=== PATIENT | female | born 1985 | race Two or more races ===

== ENCOUNTER 2018-11-10 18:33 | Outpatient (CLI) | payer OTHER ==
[2018-11-11] MEDS ORDERED: PRENATAL TABLE1 EAC1 PO (08:10)
== END 2018-11-11 21:36 | disposition home or self-care (01) ==
LOC: OBS/DEL 18:33
DX: O26.843 Uterine size-date discrepancy, third trimester (principal); O26.853 Spotting complicating pregnancy, third trimester; Z34.03 Encounter for supervision of normal first pregnancy, third trimester; O44.13 Complete placenta previa with hemorrhage, third trimester

== ENCOUNTER 2018-12-03 23:25 | Outpatient (CLI) | payer OTHER ==
[~2018-12-03 23:25] MED LIST: PRENATAL TABLE1 EAC1 PO
== END 2018-12-04 19:54 | disposition home or self-care (01) ==
LOC: OBS/DEL 23:25
DX: O26.843 Uterine size-date discrepancy, third trimester (principal); O44.03 Complete placenta previa NOS or without hemorrhage, third trimester; O26.853 Spotting complicating pregnancy, third trimester

== ENCOUNTER 2018-12-19 09:45 | Inpatient (IN) | payer OTHER ==
[~2018-12-19] VITALS: Ht 154.9 cm; Wt 2.7 kg
== END 2019-01-04 10:43 | DRG 788 ==
LOC: O/R 09:45 → OB/GYN 12-27 09:45 → LDR 01-01 09:59 → O/R 01-01 14:35 → OB/GYN 01-01 14:44
PROVIDERS: ADMIT Obstetrics & Gynecology
PROC: 4A1HXCZ Monitoring of Products of Conception, Cardiac Rate, External Approach (ICD-10-PCS; 2019-01-01)
PROC: 10D00Z1 Extraction of Products of Conception, Low, Open Approach (ICD-10-PCS; principal; 2019-01-01 13:00)
DX: O44.03 Complete placenta previa NOS or without hemorrhage, third trimester (principal); Z3A.38 38 weeks gestation of pregnancy; Z37.0 Single live birth; Z22.330 Carrier of Group B streptococcus

== ENCOUNTER → 2018-12-19 | Outpatient (CLI) | payer OTHER | END | disposition home or self-care (01) | LOC: PRENATAL 12-11 08:30 | DX: O26.843 Uterine size-date discrepancy, third trimester (principal); O99.213 Obesity complicating pregnancy, third trimester ==

== ENCOUNTER 2023-11-29 08:30 | Day surgery (SDC) | payer OTHER ==
[2023-11-21 10:23] VITALS: BP 90/70
[2023-11-21 10:32] LABS: URINE APPEARANCE Clear; URINE BILIRRUBIN Negative (NEGATIVE); URINE BLOOD Negative; URINE COLOR Yellow; URINE GLUCOSE Negative (NEGATIVE); URINE KETONE Negative (NEGATIVE); URINE LEUKOCYTE Negative; URINE NITRATE Negative; URINE PROTEIN Negative (NEGATIVE); URINE UROBILINOGEN 0.2 E.U./dl
[2023-11-21 10:38] LABS: URINE BACTERIA 837.7 uL (0.0-1933); URINE EPITHELIAL CELLS 12.2 uL (0.0-38.8); URINE RBC 25.6 uL (0.0-20.8); URINE WBC 5.1 uL (0.0-23.2)
[2023-11-21 10:42] LABS: HEMATOCRIT 38.9 % (36.0-45.00); HEMOGLOBIN 13.1 g/dL (12.0-15.00); MEAN CELL VOLUME 87.1 fL (80.00-100.00); MEAN CORPUSCULAR HEMOGLOBIN 29.4 pg (27.00-32.0); MEAN CORPUSCULAR HGB CONC 33.7 g/dl (32.0-36.0); PLATELET COUNT 373 K/uL (150-450); RED BLOOD COUNT 4.47 M/uL (4.00-6.00); RED CELL DISTRIBUTION WIDTH 14.1 % (11.5-14.5)
[2023-11-21 11:06] LABS: INR 1.05; PARTIAL THROMBOPLASTIN TIME 33.2 SECONDS (22.0-34.0); PROTHROMBIN TIME 11.4 SECONDS (9.0-11.5)
[2023-11-21 11:30] LABS: ALBUMIN 3.9 gm/dL (3.4-5.0); BILIRUBIN TOTAL 0.49 mg/dL (0.3-1.2); CALCIUM 9.2 mg/dL (8.5-10.1); CREATININE SERUM 0.55 mg/dL (0.55-1.02); GFR 123.7; POTASSIUM 4.15 mEq/L (3.5-5.1); TOTAL PROTEIN 7.9 gm/dL (6.4-8.2); TSH 1.91 uIU/mL (0.358-3.74)
[~2023-11-29] VITALS: Ht 154.9 cm; Wt 97.5 kg
[2023-11-29] MEDS ORDERED: POVIDONE-IODINE 118 ML BOTT TOP ONE (12:00)
[2023-11-29] MEDS ORDERED: CEFOXITIN SODIUM 2,000 MG VIAL IV ONE (12:00)
[2023-11-29] MEDS ORDERED: PROMETHAZINE HCL 50 MG/ML AMPUL IM ONE (12:30)
[2023-11-29] MEDS ORDERED: MORPHINE SULFATE 4 MG/ML VIAL IV PRN (12:30)
[2023-11-29] MEDS ORDERED: MORGIDOX100 MG PO (12:33)
[2023-11-29] MEDS ORDERED: NAPR500T14 PO (12:33)
== END 2023-11-29 16:20 | disposition home or self-care (01) ==
LOC: CIR.AMB 08:30
PROVIDERS: ATTEND Obstetrics & Gynecology
DX: D25.0 Submucous leiomyoma of uterus (principal); N84.0 Polyp of corpus uteri; N91.0 Primary amenorrhea